=== PATIENT | male | born 1980 | race Caucasian/White ===

== ENCOUNTER 2022-02-27 19:30 | Emergency (ER) | payer OTHER, SELFPAY ==
[2022-02-27 19:31] VITALS: BP 124/70; PULSE 80; RESP 16; TEMP 36.6; O2SAT 98; BMI 34.7
--- NOTE | 2022-02-27 19:44 | EDS_ITS ---
HPI History of Present Illness Chief Complaint: Lower Extremity Injury Informant: patient Onset/Context/Timing Onset: Days Timing: Continuous Current Severity: Moderate Maximum Severity: Severe Narrative Narrative: Patient presents secondary to left knee pain. He states it has been mildly bothering him for the past few weeks. A day or 2 ago he walked out of his house and tripped over a baseball bat that was lying on the ground injuring his left knee further. He has been wearing a knee brace. He had recently been on a burst of steroids for a gout attack. He states when he stopped those steroids his knee pain got worse. He did take 400 mg of ibuprofen this morning. He is currently visiting for the week from [place] and plan will be to return home late next week. [facility] Medical History Gout Home Medications allopurinol 100 mg tablet 100 mg PO DAILY gout 02/27/22 [History Last Taken 02/27/22] hydrocodone-acetaminophen 5-325mg 5mg-325mg 1 tab PO Q6H PRN pain 3 days #14 tabs 02/27/22 [Rx Last Taken Unknown] naproxen 500 mg tablet (Naprosyn) 500 mg PO BID PRN pain #20 tabs 02/27/22 [Rx Last Taken Unknown] Allergy/AdvReac Type Severity Reaction Status Date / Time No Known Allergies Allergy Verified 02/27/22 19:32 Surgical History History of appendectomy [place] teeth removed Social History Smoking Status: Never smoker ROS ROS ED Constitutional Constitutional ED: Denies chills or fever(s) Eyes Eyes: Denies change in vision or discharge from eye(s) ENT ENT ED: Denies discharge from eye(s), rhinorrhea or sore throat Cardiovascular Cardiovascular: Denies chest pain or palpitations Respiratory/Chest Respiratory/Chest: Denies cough or dyspnea Gastrointestinal Gastrointestinal: Denies abdominal pain, diarrhea, nausea or vomiting Genitourinary Genitourinary ED: Denies difficulty urinating or dysuria Musculoskeletal Musculoskeletal: Reports extremity pain; Denies back pain Integumentary Denies Abrasions or rash Neurologic Neurologic: Denies headache(s), paresthesias or weakness Allergic/Immunologic Allergic/Immunologic ED: Denies lip swelling or urticaria EXAM Physical Exam Const Vital Signs: 02/27/22 19:31 Temperature 97.9 F Temperature Source Temporal Pulse Rate 80 Respiratory Rate 16 Blood Pressure 124/70 H Blood Pressure Mean 88 Pulse Ox 98 Oxygen Delivery Method Room Air Positive well nourished and well developed General Appearance ED: well developed HEENT Reports normocephalic and head/scalp atraumatic Eyes PERRL and EOMs intact bilaterally Neck supple Chest Wall inspection of chest normal and palpation of chest normal Resp normal respiratory effort and clear to auscultation bilaterally Cardio regular rate and regular rhythm GI normal to inspection, nondistended, normoactive bowel sounds Palpation: soft Back/Spine no CVA tenderness Extremity Extremity Narrative: Edema noted of the anterior left knee. Mild tenderness along the posterior surface of the knee as well as the inferolateral surface of the anterior knee. No overlying skin change. No tenderness along the joint lines. Ligaments appear tight on testing. Neuro oriented x3 and no sensory deficits noted Neuro Narrative: Decreased range of motion left knee secondary to pain and edema. Sensorium / Orientation: alert Psych mental status grossly normal Skin no rashes or lesions noted MDM MDM MDM Narrative Medical decision making narrative: Patient is treated with a dose of naproxen and [place]. Left knee x-rays are obtained. Radiography Diagnostic Testing: Clinical Impression(s) from Imaging Studies Knee X-Ray 02/27/22 19:54 IMPRESSION: Mild asymmetric joint spaces and slight suprapatellar joint fluid. No fracture identified. Electronically Signed: Tammy Burns MD at 21:00 EDT , Treatment and Re-Evaluation Narrative: Left knee x-ray per my interpretation reveals an effusion. Some chronic changes are appreciated. Radiology does feel there is mild asymmetry in the joint spaces. This is all discussed with the patient. He will be given naproxen and [place] to help with pain. He already has a brace that he can wear on his knee. He will be given crutches and may weight-bear as tolerated. He will follow-up with his doctor when he returns home next week. He was advised that he may require physical therapy and or MRI. Discharge Plan Triage Chief Complaint: Lower Extremity Injury ED Provider: Radha Small Dx/Rx/DC Orders Clinical Impression: Knee sprain Instructions: ED Knee Sprain Prescriptions: New naproxen [Naprosyn] 500 mg tablet 500 mg PO BID PRN (Reason: pain) Qty: 20 0RF hydrocodone-acetaminophen 5-325 mg tablet 1 tab PO Q6H PRN (Reason: pain) 3 Days Qty: 14 0RF No Action allopurinol 100 mg Tablet 100 mg PO DAILY Primary Care Provider: BEL RODRIGUEZ Referrals: [facility] Doctor,Out of [NON-STAFF] - Disposition Disposition: Home, Self Care
[2022-02-27] MEDS: HYDROcodone Bitartrate/Apap 5/325 Tablet PO (19:47)
[2022-02-27] MEDS: Naproxen 500 MG Tablet PO (19:48)
--- NOTE | 2022-02-27 19:54 | RAD_ITS ---
EXAM: XR LEFT KNEE COMPLETE, 4 OR MORE VIEWS CLINICAL INDICATION: injury TECHNIQUE: Four or more views of the left knee. This report was created using [employer] report generation technology. COMPARISON: None. FINDINGS: BONES/JOINTS: Trace if any joint effusion on the lateral view. Flabella posterior to the knee. Asymmetric joint compartments, mildly narrowed medially and narrowed at the lateral patellofemoral joint. No fracture identified. No sclerotic or destructive changes observed. SOFT TISSUES: Unremarkable. No soft tissue swelling or gas. No radiopaque foreign body. RAD/Knee 4 or More Views IMPRESSION: Mild asymmetric joint spaces and slight suprapatellar joint fluid. No fracture identified. Electronically Signed: Tammy Burns MD at 21:00 EDT ,
[2022-02-27 21:36] VITALS: RESP 16
== END 2022-02-27 22:03 | disposition home or self-care (01) ==
PROVIDERS: Emergency Provider Emergency Medicine; Visit Provider Emergency Medicine
DX: S83.92XA Sprain of unspecified site of left knee, initial encounter (principal); Z79.899 Other long term (current) drug therapy; W18.40XA Slipping, tripping and stumbling without falling, unspecified, initial encounter
CPT/HCPCS: 73564; 99284